=== PATIENT | male | born 1985 | race Hispanic/Latino ===

== ENCOUNTER → 2023-08-12 10:26 | Outpatient (CLI) | payer OTHER, SELFPAY ==
--- NOTE | 2023-08-12 10:29 | DI.MRI.S_ITS ---
PROCEDURE: MR ANKLE RT WO CON INDICATIONS: Pain in right ankle and joints of right foot TECHNIQUE: Noncontrast sagittal T1 spin echo and T2 fast spin echo with fat saturation, axial proton density fast spin echo and T2 fast spin echo with fat saturation, coronal T1 spin echo and T2 fast spin echo with fat saturation through the ankle/hindfoot. COMPARISON: None. FINDINGS: Image quality: Excellent. Bones and joints: No acute trabecular bone injury or fracture. No hindfoot coalitions. No osteochondral injuries of the talar dome. Mild focal degenerative changes at the anteromedial aspect of the mortise joint with focal subchondral cystic changes and small marginal osteophytes. Medial structures: The deltoid ligament and the spring ligament complex are intact. Mild distal posterior tibialis tenosynovitis. The flexor digitorum longus and flexor hallucis longus tendons are intact. The posterior tibial neurovascular bundle appears normal within the tarsal tunnel, without extrinsic mass effect. Lateral structures: Remote prior sprains of the anterior talofibular ligament and the calcaneofibular ligament. The posterior talofibular ligament is intact. The anterior and posterior tibiofibular ligaments are intact. Mild to moderate peroneus brevis and longus tenosynovitis. The sinus tarsi demonstrates normal fatty signal. Anterior structures: The tibialis anterior, extensor hallucis longus, and extensor digitorum longus tendons appear intact. The dorsal talonavicular ligament appears intact. Posterior and plantar structures: Achilles tendon is intact. The proximal plantar fascia is intact. No abductor digiti minimi muscle atrophy to suggest Dye neuropathy. IMPRESSION: 1. Mild to moderate peroneus brevis and longus tenosynovitis. 2. Remote prior low-grade sprains of the anterior talofibular ligament and the calcaneofibular ligament. 3. Mild posterior tibialis tenosynovitis. 4. Mild focal degenerative changes at the anterior medial aspect of the mortise joint with focal subchondral cystic changes and small marginal osteophytes, which could contribute to anterior osseous impingement. Approved by: Toi Leos M.D. on 08/12/2023 at 16:38
== END ==
LOC: MRI 10:28
PROVIDERS: Referring Provider Podiatrist; Visit Provider Podiatrist
DX: S93.491A Sprain of other ligament of right ankle, initial encounter (principal); S93.411A Sprain of calcaneofibular ligament of right ankle, initial encounter; M25.571 Pain in right ankle and joints of right foot; M76.821 Posterior tibial tendinitis, right leg; M25.371 Other instability, right ankle; M65.861 Other synovitis and tenosynovitis, right lower leg
CPT/HCPCS: 73721

== ENCOUNTER → 2023-12-05 14:46 | Outpatient (CLI) | payer OTHER, SELFPAY ==
--- NOTE | 2023-12-05 14:47 | DI.US.S_ITS ---
PROCEDURE: US SCROTUM INDICATIONS: SCROTAL SWELLING POST VASECTOMY TECHNIQUE: Real-time scanning was performed of the scrotum and testicles, with image documentation. Color and pulse Doppler interrogation was performed of both testicles. COMPARISON: None. FINDINGS: Right: Testicle is normal in size at 3.9 x 3.0 x 2.4 cm, and homogenous in echotexture. Epididymis is normal in overall size and morphology. No hydrocele or varicoceles. Overlying scrotal skin is normal in thickness. Left: Testicle is normal in size at 3.9 x 3.1 x 2.4 cm, and homogeneous in echotexture. Epididymis is normal in overall size and morphology. Small epididymal head cysts are noted. No hydrocele or varicoceles. Overlying scrotal skin is normal in thickness. Doppler: Color and pulse Doppler demonstrate normal and symmetric arterial flow in both testicles. No inguinal hernia. IMPRESSION: Essentially unremarkable scrotal ultrasound. Dictated by: Danni Scherer M.D. on 12/05/2023 at 20:01 Approved by: Danni Scherer M.D. on 12/05/2023 at 20:05
== END ==
PROVIDERS: Referring Provider Specialist; Visit Provider Specialist
DX: N50.89 Other specified disorders of the male genital organs (principal)
CPT/HCPCS: 76870